=== PATIENT | male | born 1935 | race Caucasian/White ===

== ENCOUNTER → 2020-02-04 | Outpatient (CLI) | payer MEDICARE, BC ==
[~2020-02-04] MED LIST: LIPITOR 10MG10 MG PO
== END ==
LOC: COL.RAD 12:10
DX: N18.4 Chronic kidney disease, stage 4 (severe) (principal); N28.1 Cyst of kidney, acquired

== ENCOUNTER 2020-02-10 14:47 | Emergency (ER) | payer MEDICARE, BC ==
[~2020-02-10] VITALS: Ht 180.3 cm; Wt 80.9 kg
[2020-02-10 15:12] LABS: BASO % 0.1 % (0.0-2.0); GRAN % 80.9 % (42.2-75.2); LYMPH # 1.3 (1.2-3.4); LYMPH % 9.4 % (20.0-51.0); MEAN CELL VOLUME 99 fl (80.0-100.0); MEAN CORPUSCULAR HGB CONC 31 g/dl (33.0-37.0); MEAN PLATELET VOLUME 10.3 fl (7.4-10.4); MONO # 1.3 (0.1-0.6); MONO % 9.2 % (1.7-9.3); PLATELET COUNT 247 K/mm3 (130-400); RED BLOOD COUNT 2.72 M/mm3 (4.20-5.60); REDCELL DISTRIBUTION WIDTH-CV 16.1 % (11.5-14.5)
[2020-02-10 15:13] LABS: HEMATOCRIT 26.9 % (42.0-52.0); HEMOGLOBIN 8.4 g/dl (13.5-18.0); MEAN CORPUSCULAR HEMOGLOBIN 31 pg (27.0-31.0)
[2020-02-10 15:14] LABS: COLLECTION METHOD CATHETER
[2020-02-10 15:14] LABS: INR 1.1 (0.8-3.0); PROTHROMBIN TIME 12.7 SECONDS (9.7-12.8)
[2020-02-10 15:24] LABS: ALBUMIN 3.8 gm/dL (3.5-5.0); BILIRUBIN,TOTAL 2.7 mg/dL (0.0-1.0); C-REACTIVE PROTEIN 7.6 mg/dL (0.0-0.9); CALCIUM 9.3 mg/dL (8.4-10.2); CREATININE, serum 5.07 (0.66-1.25); POTASSIUM 5.7 mmol/L (3.4-5.0); TOTAL PROTEIN 7.1 gm/dL (6.4-8.2)
[2020-02-10 15:25] LABS: MUCOUS Present /lpf; PH 5 (5-8); SQUAMOUS EPITHELIAL 0-2 /hpf; URINE APPEARANCE Hazy; URINE BACTERIA None Seen /hpf; URINE BILIRUBIN Negative (NEGATIVE); URINE BLOOD 2+ (NEGATIVE); URINE COLOR Yellow; URINE GLUCOSE Negative (NEGATIVE); URINE KETONE Trace (NEGATIVE); URINE LEUKOCYTE ESTERASE Negative (NEGATIVE); URINE NITRATE Negative (NEGATIVE); URINE PROTEIN(semi-quant) 1+ (NEGATIVE); URINE UROBILINOGEN Negative (NEGATIVE)
[2020-02-10 15:35] LABS: TROPONIN-I 0.019 ng/mL (0.000-0.035)
[2020-02-10 15:42] LABS: ARTERIAL BLD GAS O2 SATURATION 95.6 % (92-100); ARTERIAL BLD GAS TCO2 CT 15.1; ARTERIAL BLOOD GAS BASE EXCESS -10.1 (-2-2); ARTERIAL BLOOD GAS HCO3 14.3 meq/L (22-26); ARTERIAL BLOOD GAS PCO2 26.6 mmHg (35-45); ARTERIAL BLOOD GAS PO2 86.4 mmHg (80-100); ARTERIAL BLOOD GAS pH 7.35 (7.35-7.45)
--- NOTE | 2020-02-10 16:23 | NUR ---
PINA responded to ED consult. The patient was found down in his home, after his friend/neighbor called 911 for a welfair check. The patient had not picked up his meals on wheels for a couple of days. He had some confusion. PINA met with the patient. He reports that he is not , does not have any children, and his siblings all . He states that he does not have any other family, just friend support and that he has never made a DPOA-HC. The patient's friend, Nehemiah Myrick (ph#[phone]), was in the waiting room. PINA met with him. Nehemiah was the one that contacted 911. He states that he normally calls the patient every week to check in on him. He confirms that the patient is not , does not have a children, and that his siblings have all . Nehemiah reports that the patient has a couple of other friends that live in [place]: Davonte Khanna and Ryan Lance. Nehemiah reports that the patient may have some legal documents at home and that he will check to see if the patient does have a DPOA-HC completed. PINA provided Nehemiah with PINA's phone number. PINA contacted the patient's PCP office to inquire if they have anything on file. The real estate investment analyst reports that they do not. The patient is to tentatively be admitted. PINA informed Nehemiah of this. Nehemiah would like to visit the patient and stay updated. PINA updated the patient's RN of the above information. PINA made an APS report. APS intake ID#[id number]. PINA to continue to follow.
[2020-02-10 16:46] VITALS: TEMP 97.7
[2020-02-10 17:52] VITALS: BP 123/53; PULSE 89
== END 2020-02-10 18:18 | disposition short-term general hospital (02) ==
LOC: COL.ER 14:47
PROVIDERS: Emergency Medicine
DX: S91.112A Laceration without foreign body of left great toe without damage to nail, initial encounter (principal); C34.90 Malignant neoplasm of unspecified part of unspecified bronchus or lung; C79.9 Secondary malignant neoplasm of unspecified site; N19 Unspecified kidney failure; N39.0 Urinary tract infection, site not specified; W19.XXXA Unspecified fall, initial encounter
CPT/HCPCS: J0696; J7030

== ENCOUNTER 2020-02-16 14:11 | Inpatient (IN) | payer MEDICARE, BC ==
[~2020-02-16] VITALS: Ht 180.3 cm; Wt 63.6 kg
--- NOTE | 2020-02-16 17:00 | NUR ---
arrived on unit per WC, assisted out of chair and took a couple of steps to bed, is unsteady when ambulating, when sitting on bed began to lie back side ways on the bed and assisted to lying in bed with head at top of bed, is alert to person and knows he is in [place], is unsure of the day of the week, has abrasion to right outer ankle and a mepiplex dressing to outerside of right lower leg, has jo ann to left knee area with areas of scabbing areas to left knee, left upper arm to outside of elbow with 6-7cm scabbing wound, has telfa dressing to inner right elbow that is abrasion and bruised, has dressing to cocyxs that is intact, reported to this nurse from [facility] that it is "pink" in color, full assessment completed, see admission assessment for further info,
[2020-02-16 17:17] VITALS: BP 125/63; PULSE 104; TEMP 98.4
[2020-02-16] MEDS ORDERED: PEPCID 20MG TAB20 MG PO (17:27)
[2020-02-16] MEDS ORDERED: SENNA-S 50 MG-81 TAB PO (17:28)
[2020-02-16] MEDS ORDERED: QUALITY CHOI500 U/GM TOP (17:28)
--- NOTE | 2020-02-16 18:51 | NUR ---
bedside shift report given to SHERMAN Burton
--- NOTE | 2020-02-16 20:00 | NUR ---
PATIENT REQUIRING ASSIST WITH REPOSITIONING IN BED DUE TO STIFFNESS WITH MOVEMENT OF DONA EXTREMITIES D/T PAIN WITH MOVEMENT. DENIES CHEST PAIN/SHORTNESS OF BREATH; FOLLOW COMMANDS APPROPRIATELY, NOT ORIENTED TO TIME/DATE CURRENTLY. BED ALARM ON.
--- NOTE | 2020-02-17 00:30 | NUR ---
Patient sleeping, breathing is nonlabored and even. Does not awaken when room is entered by staff. Bed alarm on.
[2020-02-17 03:09] VITALS: BP 112/58; PULSE 87; TEMP 98.6
--- NOTE | 2020-02-17 03:27 | NUR ---
PATIENT ATTEMPTING TO GET OUT OF BED, SETTING OFF BED ALARM, ASSIST PATIENT TO STAND AT BEDSIDE WHILE BED LINENS WERE CHANGED OUT, PATIENT INCONTINENT OF URINE. HS MEDS GIVEN, ABX OINT&NONSTICK DRSGS APPLIED TO CALFS ABRASIONS (R/L) AND SENOKOT GIVEN, WITH PATIENT NOW AWAKE AT THIS TIME. BED ALARM ON WHEN BACK IN BED.
--- NOTE | 2020-02-17 07:43 | NUR ---
Patient resting in bed during change of shift report given to day shift nurseTricia. Bed alarm on.
--- NOTE | 2020-02-17 11:44 | NUR ---
Patient had a shower this morning with OT and following the shower dressings to all his abrasions were patted dry applied ordered ointment, applied non adherent pad and secured with tegaderm. Patient tolerated well. Left great toe had sutures in tact, applied non adherent telpha and secured with tegaderm. Bilateral elbows and bilateral legs had a few abrasions that had yellow drainage observed to old dressings. No redness or other signs of infection observed. Patient has an area to his left buttock cheek that is open approx. 0.75 cm round as well as some blanchable redness to his coccyx area. Applied mepilex to area. Will continue to monitor.
--- NOTE | 2020-02-17 11:57 | NUR ---
Received a call from TICO Khanna this morning [phone]. He would like to receive updates on patient on a regular basis. 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 He was supposed to go for a follow up pet scan a week ago, but he fell and was hospitalized instead. So he will need to follow up with that doctor following his IPR stay. Keri HELLER was given this information. Patient also was okay with receiving calls from friend Nehemiah Vicente [phone].
--- NOTE | 2020-02-17 14:09 | NUR ---
Call placed to Dr. Candelaria's office to schedule a follow up appointment. Awaiting a return call.
--- NOTE | 2020-02-17 15:02 | NUR ---
PINA contacted the patient's friend/DPOA Davonte Khanna at [phone] to complete inital intake as the patient is new to [facility]. The patient lives alone in [place]. Davonte provides that the patient was independent prior to hospitalization. Davonte provides that patient did not utilize any equipment at home. Patient's PCP is Lon Recinos. Davonte was unsure of where patient obtained his medications. The patient does not have advance directives in EMR, but Davonte reports that documentation was completed at [facility]. PINA contacted medical records at [facility], and respresentative informed SW they do have documents and will fax to IPR unit. They confirmed that DPOA is Davonte Khanna. PINA will continue to follow.
--- NOTE | 2020-02-17 15:30 | NUR ---
PINA contacted TICO West of patient of to review IPR team conference note PINA provided current therapy services Ryan is being assisted with. PINA provided information to Davonte in regards to the IPR team reassessing Ryan on 02/24/2020. Davonte verbarlized understanding and agreement of plan. PINA will continue to follow.
--- NOTE | 2020-02-17 17:20 | NUR ---
Patient sleeping in bed at this time.
[2020-02-17 17:41] VITALS: BP 107/59; PULSE 85; TEMP 97.6
--- NOTE | 2020-02-17 18:26 | NUR ---
Patient drank all his ensure with ice cream this evening instead of his meal. He was not interested in what they were serving.
--- NOTE | 2020-02-17 18:30 | NUR ---
Patient was informed of the no visitor policy put into effect this evening.
--- NOTE | 2020-02-17 19:28 | NUR ---
Reported off to night nurse.
--- NOTE | 2020-02-17 20:00 | NUR ---
PT RESTING IN BED. ORIENTED BUT SL FORGETFUL AT TIMES. DENIES NEED FOR PAIN MEDICATION. USED URINAL WITH ASSIST. CHANGED CLOTHING WITH MIN ASSIST FROM PT. SCD'S ONAT THIS TIME. CALL LIGHT IN REACH. BED ALARM SET.
--- NOTE | 2020-02-18 04:14 | NUR ---
RPT INCONTINENT OF URINE IN DIAPER. SCANT BM SMEAR ALSO. REPOSTIONED FOR COMFORT. READY FOR MORE SLEEP. DENIES PAIN.
[2020-02-18 06:00] VITALS: BP 99/58; PULSE 86; TEMP 97.8
[2020-02-18 17:45] VITALS: BP 92/45; PULSE 86; TEMP 98
--- NOTE | 2020-02-18 18:00 | NUR ---
PATIENT DENIED PAIN THROUGHOUT THE SHIFT. THE PATIENT STATES THAT HE DOES NOT LIKE THE FOOD TODAY. PATIENT REFUSED ALL MEALS. PATIENT STATED THAT HE WOULD LIKE A STRAWBERRY SHAKE FOR DINNER WITH THE ENSURE. PATIENT REQUESTING CEREAL FOR BREAKFAST. PATIENT RESTING IN BED AT THIS TIME WITH BED ALARM ON.
--- NOTE | 2020-02-18 21:00 | NUR ---
PT RESTING IN BED. HAS INCREASING CONFUSION DAY WEARS ON. COOPERATIVE. NOT IMPULSIVE. DENIES PAIN. INCONT URINE. WEAR DIAPERS. SEE ASSESSMENT. CALL LIGHT IN REACH. BED ALARM SET.
[2020-02-19 06:00] VITALS: BP 83/43; PULSE 88; TEMP 98
--- NOTE | 2020-02-19 14:52 | NUR ---
SW attempted to contact the patient's DPOA-HC, Davonte Khanna ([phone]) to address any questions or concerns, left message. SW received a call from the patient's friend, Fahad Trena ([phone]) inquiring about the patient's status. SW attempted to contact Fahad to inform him that we could not release information to him without authorization, left message. Will continue to follow.
--- NOTE | 2020-02-19 17:01 | NUR ---
Patient currently resting in bed at this time. Patient has been turned q2 hours while in bed. Two areas of skin breakdown are visible on his bottom, one open sore on his inner left buttock and one excoriated area on his coccyx. Patient has otherwise denied pain. Patient has not eaten well today, despite being offered several different food choices. Snacks encouraged. Patient denies further needs at this time, call light within reach.
[2020-02-19 18:00] VITALS: BP 101/57; PULSE 97; TEMP 98.6
--- NOTE | 2020-02-19 19:00 | NUR ---
Received report from Lisa. Seen patient asleep in bed. Call light within reach.
--- NOTE | 2020-02-19 21:00 | NUR ---
Changed patient's briefs and repositoned him. Applied SCD on bilateral lower extremities. Denies pain.
--- NOTE | 2020-02-20 04:05 | NUR ---
Checked on patient, he denies pain right now. Changed his briefs. Dressing on his bottom was changed as well. Hooked back SCD after changing.
[2020-02-20 04:12] VITALS: BP 102/53; PULSE 84; TEMP 99.2
--- NOTE | 2020-02-20 07:12 | NUR ---
Endorsed patient to Kaylyn. Patient asleep during shift change. Denies pain thw whole shift. Changed his briefs at around 0400H. Bed alarm on.
[2020-02-20 17:07] VITALS: BP 100/56; PULSE 81; TEMP 98.6
--- NOTE | 2020-02-20 19:00 | NUR ---
PATIENT RESTED IN THE BED THROUGHOUT THE DAY WHEN NOT WORKING WITH THERAPIES. PATIENT CHECKED PERIODICALLY DURING THE SHIFT AND CHANGED NEED. PATIENT REPOSITIONED WITH PILLOWS THROUGHOUT THE SHIFT TO OFFLOAD PRESSURE FROM THE SACRUM. NUMEROUS DRESSINGS ON BODY CAME OFF DURING THE PATIENTS SHOWER WITH OT THIS MORNING. NEW DRESSINGS APPLIED TO SACRUM, LEFT GLUTE, BILATERAL LOWER EXTREMITIES AND BILATERAL UPPER EXTREMITIES. PATIENT DENIED PAIN THROUGHOUT THE SHIFT. PATIENT RESTING IN BED WATCHING TV AT THIS TIME. BED ALARM ON. CALL LIGHT WITHIN REACH. REPORT GIVEN TO SHERMAN YOUNG.
--- NOTE | 2020-02-20 19:28 | NUR ---
Received report from Kaylyn. Seen patient awake, lying in bed. He denies pain. Encouraged patient to finished his Ensure and he was able to drink them. Diapers still dry. Call light within reach.
--- NOTE | 2020-02-21 02:00 | NUR ---
Patient asleep. Came in to check if his briefs is wet. Changed patient's briefs. Denies need at this time. Not in pain.
[2020-02-21 06:00] VITALS: BP 98/50; PULSE 86; TEMP 97.8
--- NOTE | 2020-02-21 07:07 | NUR ---
Endorsed patient to Grace. Patient asleep during shift change. Not in pain the whole shift. Briefs were changed at around 0500H.
--- NOTE | 2020-02-21 07:10 | NUR ---
in bed and appears to be sleeping
--- NOTE | 2020-02-21 07:50 | NUR ---
assisted up in bed for breakfast although he states he doesn't really want anything, agreed to drink ensure and this was provided
--- NOTE | 2020-02-21 09:30 | NUR ---
assisted up and out of bed, ambulated with steady gait with standby assist into bathroom, was unable to void but had been incontinent of urine, incontinent care provided, ambulated out of bathroom and out to recliner, encouraged to sit up in recliner and explained it is good for his breathing and to help him get stronger, full assessment completed, see intervention for further info, has dressings to right lower leg and outer ankle, also to outer side of left leg, then bilateral elbows, mepiplex dressing to cocyx and right hip,
--- NOTE | 2020-02-21 10:50 | NUR ---
requesting to go back to bed that sitting in the chair makes his cocyx hurt, assisted into bed, does not follow directions well, began to lie back in bed sideways and then slow to understand how he needs to lie, redirected and then was able to get into bed
--- NOTE | 2020-02-21 12:54 | NUR ---
only ate grapes, coleslaw and some soup for lunch, did drink all of an ensure with lunch
--- NOTE | 2020-02-21 14:15 | NUR ---
called nurse to room and said he thought he had already been incontinent, assisted up to bathroom, had been incontinent of urine and then had small bowel movement, pink mepiplex over cocyx is pulling off and has 3cm stage II pressure ulcer, new bandage placed, out to room and into recliner
--- NOTE | 2020-02-21 15:10 | NUR ---
assisted back to bed, cocyx allevyn dresing changed and mepiplex to inside upper leg near cocyx also changed, c/o cocyx hurting while up in chair
[2020-02-21 16:20] VITALS: BP 95/51; PULSE 84; TEMP 97.7
--- NOTE | 2020-02-21 16:43 | NUR ---
appears to be sleeping but awakens easily, denies needs
--- NOTE | 2020-02-21 17:40 | NUR ---
refusing supper tray, ordered ensure for now and will have cereal and milk for breakfast
--- NOTE | 2020-02-21 18:45 | NUR ---
PATIENT RESTING IN BED DURING CHANGE OF SHIFT REPORT. REPORTS WOULD LIKE ORANGE JUICE WHEN NEXT AVAILABLE. HAD VOICED CONCERNS "AM I WASTING MONEY BEING HERE OR NOT" NO OTHER NEEDS REPORTED AT THIS TIME. INFORMED PATIENT HIS CONCERNS WILL BE FORWARDED TO FOR FURTHER EVALUATION, ESPECIALLY WITH HIS PROGRESS WITH THERAPIES. BED ALARM ON.
--- NOTE | 2020-02-21 20:00 | NUR ---
OBSERVED GAIT SLOW AND STEADY WHEN TAKING A FEW STEPS AT BEDSIDE, ABLE TO MULTI DISCIPLINED LANGUAGE ANALYST FEET WITH LOTS OF SUPERVISION/DIRECTION. DENIES NUMBNESS/TINGLING, SPEAKS CLEAR AND APPROPRIATELY. NO PROBLEMS WITH SWALLOWING MEDICATIONS WHOLE, NO PROBLEMS SWALLOWING SOLID FOODS.
--- NOTE | 2020-02-22 03:30 | NUR ---
PATIENT SLEEPING, DOES NOT AWAKEN WHEN ROOM ENTERED BY STAFF, OBSERVED RESP NONLABORED AND EVEN. BED ALARM ON.
[2020-02-22 06:15] VITALS: BP 111/63; PULSE 83; TEMP 98.7
--- NOTE | 2020-02-22 07:00 | NUR ---
PATIENT RESTING IN BED DURING SHIFT CHANGE REPORT WITH BED ALARM ON.
--- NOTE | 2020-02-22 11:13 | NUR ---
Patient resting in recliner, call light in reach and chair alarm set. Patient asked to have his chair reclined further and to have his legs up. This nurse assisted him and educated him on how to recliner the chair. He was able to demonstrate properly. Patient has a reddened bottom and excoriation to the area. This nurse applied mepilex to the area. Bacatracin was applied to patient's open healing wounds to bilateral legs and arms. Mepilex was applied to left wrist where patient's watch keeps causing his arm to bleed from delicate skin and healing abrasion. Will continue to monitor.
--- NOTE | 2020-02-22 11:17 | NUR ---
Patient's bed was changed this morning due to being wet with urine.
--- NOTE | 2020-02-22 12:33 | NUR ---
Sweep Press Operator followed up with the patient from the weekend. SW asked patient if he had anyone in town that could bring him clothes and he stated he didn't think so. SW contacted patient's DPOA, Davonte who advised he would be able to make arrangements for someone to bring in clothes to patient. PINA will follow up with Davonte after team conference on Saturday to provide updates.
[2020-02-22 17:22] VITALS: BP 120/56; PULSE 84; TEMP 98.2
--- NOTE | 2020-02-22 19:08 | NUR ---
PATIENT RESTING IN BED DURING CHANGE OF SHIFT REPORT RECEIVED FROM DAY SHIFT NURSEBRITTNEY. BED ALARM ON. DENIES ANY NEEDS AT THIS TIME.
--- NOTE | 2020-02-22 19:55 | NUR ---
Spoke with EDUARDO this evening and discussed ways for patient to get more interaction with friends visually as well as getting access to a computer so he can watch daily masses. Davonte will be calling around checking on this tonight and tomorrow to see how this can be accomodated. Patient has been refusing most of his meals reporting that the food is aweful. Patient was encouraged to eat and this nurse had kitchen make him a sandwich this evening and some jellow with strawberrys so that he would eat a good meal. Will continue to monitor. Reported off to night nurse.
--- NOTE | 2020-02-22 20:00 | NUR ---
OBSERVED BLE WEAKNESS WITH MOVEMENT, REPORTS HE FEELS TIRED WITH EXERTION, DRSG TO COCCYX AREA/INTACT, LEFT FOREARM-COVER FOR SKIN TEAR.
--- NOTE | 2020-02-22 23:19 | NUR ---
PATIENT INCONTINENT OF URINE/STOOL, HAD TAKEN OFF ADULT PULL UPS AND PUT BRIEFS ON THE FLOOR NEXT TO BED, OBSERVED HOSP PANTS WET WITH INCONTINENT URINE. INCONTINENT CARE GIVEN, APPLIED ZINC OXIDE MED. PATIENT DENIES ANY FURTHER NEEDS.
[2020-02-23 05:44] VITALS: BP 106/57; PULSE 77; TEMP 97.6
--- NOTE | 2020-02-23 06:01 | NUR ---
BED ALARM ON GOING OFF, PATIENT SITTING AT BOTTOM PART OF BED, DID NOT KNOW WHAT HE NEEDED. PATIENT THEN LAID BACK DOWN WHEN INFORMED OF BREAKFAST MEAL NOT SERVED UNTIL AFTER 0700. BED ALARM ON WHEN LAYING BACK IN BED.
--- NOTE | 2020-02-23 07:13 | NUR ---
PATIENT RESTING IN BED DURING CHANGE OF SHIFT REPORT GIVEN TO DAY SHIFT NURSEBRITTNEY. BED ALARM ON.
--- NOTE | 2020-02-23 09:47 | NUR ---
Patient resting in bed, call light in reach and chair alarm set. Patient denies pain this morning. Is independent with eating his meals. Patient requires a lot of queing with transfer from bed to bathroom and back. Patient wanting to sit down instead of standing up after just a few minutes of standing, but with queing was able to walk back and forth with one person assistance. Spoke with patient's friend Nehemiah this morning and he will be dropping off patient's check book so that therapy can work with him on paying his bills. He will also drop off some clothes for him. Will continue to monitor.
--- NOTE | 2020-02-23 11:11 | NUR ---
Personal items received from family and delivered to patient room.
--- NOTE | 2020-02-23 16:07 | NUR ---
This nurse received a call from the [facility] Department regarding the patient. Reporting that patient's sister was trying to locate him and was worried. This nurse asked patient if he had a sister, but he stated that he didn't. This nurse then spoke with SW to let them know that someone saying she was patient's sister was trying to call him and SW was going to follow up with that person. This nurse then received a call from patient's [id number] and when patient was asked about her he was willing to talk to her. This nurse then transferred call to patient. They are visiting on the phone at this time.
[2020-02-23 16:34] VITALS: BP 108/59; PULSE 96; TEMP 97.7
--- NOTE | 2020-02-23 18:57 | NUR ---
PATIENT RESTING IN BED DURING CHANGE OF SHIFT REPORT RECEIVED FROM DAY SHIFT NURSEBRITTNEY. BED ALARM ON.
--- NOTE | 2020-02-23 19:15 | NUR ---
Ryan is having episodes in the evening when walking to and from bathroom with staff where he almost gets in a trans and then stiffens up and tries to sit down. It looks as if he sees the line on the floor to the bathroom and can't go over it. Staff has to almost yell out for him to stand up tall and lean nose over toes for him to get out of the trans he was in. He was then able to walk to the bathroom with queing. I asked the patient what he is thinking when that happens, but he is not aware that he is acting any different. This was reported off to night nurse.
--- NOTE | 2020-02-23 19:52 | NUR ---
PATIENT ORIENTED THEN WOULD REPEAT NEED FOR INSTRUCTIONS FOR THE DAY, GREETED THIS NIGHT NURSE WITH "GOOD MORNING....WHAT IS THE PLAN TODAY?" THEN REMEMBERED HAD ALREADY FINISHED THERAPY AFTER PATIENT REMINDED HE HAD DONE HIS THERAPY TODAY. CONTINUES WITH WEAKNESS GENERALIZED BUT ABLE TO BE UP WITH THERAPIES DURING DAY, REPORTS FEELS TIRED. DENIES PAIN AT THIS TIME.
--- NOTE | 2020-02-24 00:43 | NUR ---
PATIENT SLEEPING, DOES NOT AWAKEN WHEN ROOM ENTERED BY STAFF. BREATHING NONLABORED AND EVEN. BED ALARM ON.
[2020-02-24 06:24] VITALS: BP 113/57; BP 79/31; PULSE 75; TEMP 98.3
--- NOTE | 2020-02-24 07:42 | NUR ---
PATIENT RESTING IN BED DURING CHANGE OF SHIFT REPORT GIVEN TO DAY SHIFT NURSENORMAN. BED ALARM ON.
[2020-02-24 16:49] VITALS: BP 104/48; PULSE 80; TEMP 97.4
--- NOTE | 2020-02-24 16:51 | NUR ---
Impact Retail Service Merchandiser met with patient to review and provide copy of team conference notes. SW spoke with patient about recommendations for Assisted Living at discharge, even if just temporarily. Patient is open to this but needs to think about it. SW contacted patient's DPOA, Davonte to schedule family conference for 02/26/20 @ 1300. PINA provided meeting time to patient and to Chantal, IPR Director. PINA spoke with Davonte about AL recommendation. Davonte is supportive of this but worries patient may be resistant. Discharge date is tentatively set for 03/04/20. PINA will continue to follow.
--- NOTE | 2020-02-24 19:00 | NUR ---
PATIENT COCCYX DRESSING CHANGED AFTER THE PATIENTS SHOWER THIS MORNING. PATIENT BEGAN TO LEAN AND SIT BACK THIS NURSE WAS APPLYING THE DRESSING. PATIENT STATES THAT HE KNOWS HE SAT DOWN TOO EARLY, BUT DID NOT LISTEN TO VERBAL CUES. PATIENT RESTING IN BED DURING SHIFT REPORT. PATIENT DENIES ANY NEEDS AT THIS TIME. REPORT GIVEN TO SHERMAN YOUNG.
--- NOTE | 2020-02-24 19:05 | NUR ---
Received report from Kaylyn. Seen patient in a sitting position in bed. He denies pain. He states he had some bleeding in his left elbow that's why they have to put a dressing. Most abrasions he has in his body are open to air. Call light within reach.
[2020-02-25 05:55] VITALS: BP 105/50; PULSE 78; TEMP 98.7
--- NOTE | 2020-02-25 06:00 | NUR ---
Checked on patient and briefs were changed. Dressing on his cocyx still intact. He denies pain. Patient can move side to side. Bed alarm on. Call light within reach.
--- NOTE | 2020-02-25 16:45 | NUR ---
Fire Sprinkler Inspector followed up with patient to discuss Assisted Living options. Patient would like to obtain some information about AL options in [place] including [facility], [facility], and [facility]. SW will follow up with these AL facilities and provide information to patient.
[2020-02-25 18:00] VITALS: BP 100/47; PULSE 90; TEMP 98.2
--- NOTE | 2020-02-25 19:00 | NUR ---
PATIENT IS SLEEPING IN BED DURING SHIFT REPORT. SCD'S IN PLACE. PATIENT DENIED PAIN THROUGHOUT THE SHIFT. BED ALARM ON. CALL LIGHT WITHIN REACH. REPORT GIVEN TO SHERMAN GARIBAY.
--- NOTE | 2020-02-25 21:00 | NUR ---
PT RESTING IN BED. VERY DROWSY. ORIENTED AT THIS TIME WITH PERIODS OF FORGETFULNESS. COOPERATIVE AND PLEASANT. ASSESSMENT COMPLETED. PT HAS INCONTINENT PULL UPS ON. DENIES PAIN AT THIS TIME. BED ALARM SET . CALL LIGHT IN REACH.
[2020-02-26 05:45] VITALS: BP 103/56; PULSE 85; TEMP 97.8
--- NOTE | 2020-02-26 11:37 | NUR ---
Patient attending theapies this morning. He has been having more confusion today, had a tachy heart rate this morning when working with PT and RT put patient on oxygen while completing therapy. O2 was below 90% when exercising. Will continue to monitor. VS at 08:40 AM 109/58, P 102 - 130, 89% on RA, 100% on 2 Liter's oxygen, R 18. See EKG order and Tele order. Dr. Nicolas saw patient and there were no orders for CT at this time.
[2020-02-26 13:30] VITALS: BP 128/95; PULSE 108
--- NOTE | 2020-02-26 14:57 | NUR ---
Tile Professional faxed referrals to Assisted Living Facilities including [facility], [facility], [facility], and [facility]. SW then participated in family meeting which included Chantal, IPR Director and PT/OT/ST. Patient's DPOA, Davonte and his Jessica participated by phone. Chantal opened the meeting by explaining it's purpose then PT/OT/ST reviewed patient's progress and recommendations. At this time, Assisted Living is recommended. The team discussed with patient that if he will need SNF at discharge, Dr. Cueva will need to be consulted to discuss treatment as SNF cannot accept while patient is receiving chemotherapy. Patient and Davonte verbalized understanding. At this time, it is not anticipated that home will be an option for patient. Patient and Davonte are hopeful that patient will progress and be appropriate for AL. SW followed up with AL referrals. [facility], [facility], [facility], and [facility] all advised that based on patient's current status, they do not feel he meets AL criteria and will need higher level of care. SW will continue to send updates and follow.
[2020-02-26 16:00] VITALS: BP 108/62; PULSE 103; TEMP 98.9
--- NOTE | 2020-02-26 17:06 | NUR ---
Patient found getting out of bed, alarm sounded to bed. Will instruct staff to continue to keep an eye on patient closely. Patient is located close to nurse station.
--- NOTE | 2020-02-26 17:14 | NUR ---
Spoke with PORFRIIO Cruz to let her know that the IV was not placed at this time does Dr. Nicolas want to have it placed for the Tele at this time. He chose not to do a CT scan earlier today. PORFIRIO Cruz will evaluate patient for the next 24 hours on Tele and if Patient continues to stay in [facility] then she will see if Dr. Nicolas wants to DC the Tele. No IV needs to be placed at this time per PORFIRIO Cruz.
[2020-02-26 18:40] VITALS: BP 108/52; PULSE 103; TEMP 98
--- NOTE | 2020-02-26 19:34 | NUR ---
Patient requested to talk to PINA about getting his papers in order. Call placed to Davonte Khanna to let him know of the patient's concerns. Davonte will be calling and talking with Ryan this weekend to visit and discuss some of those concerns. Patient currently resting in bed, call light in reach and bed alarm set. Reported off to night nurse.
[2020-02-27 00:09] VITALS: BP 100/48; PULSE 84; TEMP 98.8
[2020-02-27 04:03] VITALS: BP 109/55; PULSE 84; TEMP 97.8
[2020-02-27 05:10] VITALS: BP 102/52; PULSE 83; TEMP 98.2
--- NOTE | 2020-02-27 05:19 | NUR ---
QUIET, UNEVENTFUL NIGHT.
[2020-02-27 08:00] VITALS: BP 97/47; PULSE 91; TEMP 98.8
[2020-02-27 16:27] VITALS: BP 106/57; PULSE 82; TEMP 99.1
--- NOTE | 2020-02-27 18:50 | NUR ---
PATIENT HAD AN UNEVENTFUL DAY. PATIENT RESTED IN BED THROUGHOUT THE SHIFT. PATIENT APPEARS TO BE MORE CONFUSED SINCE THIS NURSE WORKED WITH THE PATIENT LAST ON SATURDAY. INCONTINENT CARE PROVIDED NEEDED. PATIENT DENIED PAIN THROUGHOUT THE DAY. PATIENT ASLEEP IN BED DURING SHIFT REPORT. REPORT GIVEN TO SHERMAN GARIBAY.
--- NOTE | 2020-02-27 20:00 | NUR ---
PT RESTING IN BED. MENTATION VERY FOGGY AND FORGETFUL. SOME INFORMATION IS ACCURATE. AWARE MONTH/YEAR/PLACE/SEASON. PT DRIFTS INTO CONFUSED CONVERSATION. PLEASANT AND COOPERATIVE. NO CHANGE IN NEURO STATUS. 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 FOLLOWS INSTRUCTIONS WITH NEURO CHECK. SEE ASSESSMENT REGARDING SKIN INTEGRITY. PT INCONTINENT OF URINE. WEARS DIAPERS. REPOSITIONED FREQUENTLY. CALL LIGHT IN REACH. BED ALARM SET.
[2020-02-28 04:41] VITALS: BP 107/55; PULSE 85; TEMP 98.1
--- NOTE | 2020-02-28 09:30 | NUR ---
PATIENT ASSESSMENT COMPLETED. HE RESTS IN BED HAS FINISHED BREAKFAST. DENIES PAIN OR OTHER NEEDS.REPOSITIONED IN BED AND CHANGED BRIEF
[2020-02-28 18:15] VITALS: BP 105/52; PULSE 93; TEMP 98
[2020-02-29 05:21] VITALS: BP 98/57; PULSE 86; TEMP 98.1
--- NOTE | 2020-02-29 05:31 | NUR ---
Patient rested well overnight, did awaken twice and attempt to get up independently due to confusion. Patient reoriented quickly and was redirected easily. Patient denies pain or needs at this time, call light within reach, bed alarm on.
--- NOTE | 2020-02-29 09:00 | NUR ---
Assessment completed, alert/oriented to person, gets confused/disoriented but is easily redirected and is able to follow most commands appropriately, helped him get dressed and sat up to eat breakfast, no neuro deficits noted this morning, heart RRR/dsital pulses are palapble, will continue to monitor
[2020-02-29 11:12] VITALS: BP 91/54; PULSE 106
[2020-02-29 11:15] VITALS: BP 105/58; PULSE 96
[2020-02-29 11:20] VITALS: BP 107/55; PULSE 94
--- NOTE | 2020-02-29 11:28 | NUR ---
At 1110 patient was with Occupational therapy and was sitting on the toilet and went unresponsive, no loss of breathing or pulse noted, after about 30 seconds patient was responding to name but still with LOC, myself and PT Guy did manual cradle carry him to his bed, he immediatley started to regain LOC and was responding appropriately to questions and commands, initaill BP was soft and he was a little tachycardic but this quickly resolved, see documentation for VS, was in the room within a couple minutes and evaluated the patient as well / No new orders given to me at this time
[2020-02-29 12:22] LABS: BASO # 0.1 (0.0-0.2); BASO % 0.6 % (0.0-2.0); EOS # 0.2 (0.0-0.7); GRAN # 6.4 (1.4-6.5); GRAN % 68.5 % (42.2-75.2); LYMPH # 1.8 (1.2-3.4); LYMPH % 18.8 % (20.0-51.0); MEAN CELL VOLUME 105 fl (80.0-100.0); MEAN CORPUSCULAR HGB CONC 30 g/dl (33.0-37.0); MEAN PLATELET VOLUME 10.6 fl (7.4-10.4); MONO # 0.9 (0.1-0.6); MONO % 9.9 % (1.7-9.3); PLATELET COUNT 235 K/mm3 (130-400); RED BLOOD COUNT 2.84 M/mm3 (4.20-5.60); REDCELL DISTRIBUTION WIDTH-CV 15.9 % (11.5-14.5)
[2020-02-29 12:24] LABS: HEMATOCRIT 29.8 % (42.0-52.0); MEAN CORPUSCULAR HEMOGLOBIN 32 pg (27.0-31.0)
[2020-02-29 12:27] LABS: ANION GAP 10 mmol/L (7-16); BLOOD UREA NITROGEN 40 mg/dL (9-20); CALCIUM 8.9 mg/dL (8.4-10.2); CARBON DIOXIDE 26 mmol/L (22-30); CHLORIDE 99 mmol/L (98-107); CREATININE, serum 2.33 (0.66-1.25); GLUCOSE 95 mg/dL (74-106); POTASSIUM 4.8 mmol/L (3.4-5.0); SODIUM 134 mmol/L (137-145)
[2020-02-29 12:40] LABS: TROPONIN-I < 0.012 ng/mL (0.000-0.035)
--- NOTE | 2020-02-29 16:26 | NUR ---
Image Archivist spoke with patient's DPOA-Davonte who advised patient was thinking this weekend that maybe he could just discharge home with support from Davonte and his , Jessica. SW followed up with patient to discuss discharge plan. SW advised that home is not recommended and at this point, patient will need a higher level of care then even Assisted Living. Patient verbalized understanding and requested printed information about the three SNFs in [place]. SW provided. PINA collaborated with Chantal, [facility] Director about consulting with Dr. Cueva, oncologist. Chantal also advised that patient may have a Neurology consult prior to discharge. SW faxed referrals to [facility], and [facility]. SW to continue to follow.
[2020-02-29 18:09] VITALS: BP 95/55; PULSE 66; TEMP 97.7
--- NOTE | 2020-02-29 20:00 | NUR ---
At time of assessment, patient is sleeping in bed; He is easily awoken by voice. He is slightly drowsy but answers orientation questions correctly. Hand director of safety and security are equal but weak. Heart sounds are regular, lungs are clear but diminished. He has various skin tears on his upper and lower extremities, none of which are bleeding at this time. He does not complain of any pain. No edema is present. Will continue to monitor.
[2020-03-01 05:15] VITALS: BP 99/53; PULSE 83; TEMP 97.9
--- NOTE | 2020-03-01 05:15 | NUR ---
Patient has slept throughout the night with no complaints of pain. No new concerns.
--- NOTE | 2020-03-01 16:03 | NUR ---
Gang Miner collaborated with SHERMAN Mcmillan at Dr. Cueva's office about discharge planning. Deyanira spoke with Dr. Cueva who advised patient could hold off on chemotherapy during skilled stay as that is what patient will require at discharge. Deyanira inquired about facilities willingness to do Keytruda, an IV infusion during stay. Deyanira advised this would be considered immunotherapy. Deyanira reports facilities typically won't do this due to cost. Deyanira advised if facilities won't do the Keytruda, patient could still hold off on all treatments during skilled stay. PINA contacted Lisa at [facility], Paco at [facility], and Montrell at [facility] to provide update on treatment. Each facility will look into if they can do Keytruda or not. PINA faxed clinical updates including Neurology Consult. PINA followed up with patient to provide update. Patient states he read info PINA provided about the facilities. PINA also provided update to TICO Arauz who advised Paco at [facility] had been in contact with him. PINA will continue to follow.
--- NOTE | 2020-03-01 17:58 | NUR ---
Patient resting in bed at this time eating supper. He attended all therapies today. Patient continues to have confusion at times, but was alert to the year and month. Patient was a one to two assist with transfers depending on the time of day and if he was weak. Patient was incontinent of urine multiple times today. 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 All open areas cleaned with sterile saline, patted dry then applied aquacel AG to open areas and secured with mepilex. Patient was also placed on 2 Hour turn scheduled and incontinent checks. Patient has been refusing to turn on either side, but this nurse educated patient today about the need to turn from side to side on a regular basis to prevent these from getting worse. Patient did allow nurse to place him on his side this afternoon. Will continue to monitor.
[2020-03-01 18:20] VITALS: BP 104/61; PULSE 88; TEMP 98.8
--- NOTE | 2020-03-01 19:00 | NUR ---
PT RESTING IN BED. SEDATE. PT AGREED TO EXTERNAL CATHETER. PLACED TO DEPENDENT DRAINAGE. PT REPOSITIONED TO KEEP OFF COCCYX. DENIES PAIN. CALL LIGHT IN REACH. BED ALARM SET.
--- NOTE | 2020-03-02 04:52 | NUR ---
PT HAS BEEN TURNED APPROXIMATELY Q2HR & EXTERNAL CATHETER INTACT- NO LEAKAGE TO PROMOTE HEALING OF COCCYX WOUND. PT SLEEPING WELL. NO RESP DISTRESS. DENIES PAIN WHEN AWAKE.
[2020-03-02 05:25] VITALS: BP 104/53; PULSE 90; TEMP 98
--- NOTE | 2020-03-02 06:10 | NUR ---
UNEVENTFUL NIGHT. PT REPOSTIONED Q2-3HRS. NO IMPULSIVENESS. DENIES PAIN.
--- NOTE | 2020-03-02 07:31 | NUR ---
Patient resting in bed, call light in reach and bed alarm is set.
[2020-03-02 12:48] VITALS: BP 100/57; PULSE 88; TEMP 98.2
--- NOTE | 2020-03-02 12:49 | NUR ---
Patient had an episode of weakness when working with PT this morning. PT took his blood pressure and it was 70/50's after doing some activity. He took patient back up to his room and blood pressure came up to 90's/50's, but patient still feeling very weak. Patient encourage to drink more water and PT decided that he would not be able to work with him today due to weakness.This nurse will be meeting with Dr. Nicolas at 1:00 PM and will discuss condition. Patient is currently lying in bed eating a half a sandwich for lunch, refusing his first lunch of the day and then given a turkey sandwich. VSS 100/57; 98% on RA; 88; 98.2; 18.
[2020-03-02 16:13] VITALS: BP 114/52; PULSE 79; TEMP 98.1
--- NOTE | 2020-03-02 16:50 | NUR ---
Bingo Clerk followed up with Montrell at [facility] and Paco at [facility], both facilities can accept referral. PINA spoke with Lisa at [facility] who advised they were still reviewing updates. Lisa advised she would be contacting patient's DPOA, Davonte this afternoon. PINA met with patient and provided copy of team conference notes. SW provided update on facilities and patient states he is still talking things over with Davonte. PNIA requested COVID swab to be done. Palliative Consult has been ordered. PINA contacted Leonie Palliative RN who will follow up tomorrow. SW to continue to follow.
--- NOTE | 2020-03-02 20:34 | NUR ---
Patient attended therapies until this morning when he had a sinkable episode when working with therapy. See order to hold therapies today due to weakness. Patient was seen by Dr. Nicolas. 20 G IV catheter was started to patients left forearm and he was given 1 L bolus of IV fluids. Patient tolerated well. See new orders to start Florinef. Reported off to night nurse.
[2020-03-03 04:19] VITALS: BP 95/45; PULSE 45; TEMP 98.2
--- NOTE | 2020-03-03 10:18 | NUR ---
I met with "Ryan" this morning to talk about goals of care. he is aware that he will be discharged tomorrow and states he hopes to go to [facility] for a skilled stay. It is still his stated plan that he hopes to go home when he is able to get stronger. He does understand that while he is at a skilled facility, he will not be able to have chemotherapy. He reports he started chemotherapy in August and it has really made him feel bad, although better after the dose was adjusted. he is willing to wait and decide how he will proceed after he finishes his skilled care. If things do not improve, he may decide that chemotherapy is no longer worth the way it makes him feel and then i will be done. We talked about hospice services if he makes that decision, to help him be able to be more comfortable and enjoy the things he does still enjoy. Unfortunately, visits with friends and watching [employer] sporting events may be difficult to accomplish during this COVID restriction. He understands this but having trouble accepting everything that is happening. Through the conversation, he would start talking about a construction project that he hopes to see finished in 2022 when he gets into a subject that is difficult to talk about. 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
--- NOTE | 2020-03-03 11:30 | NUR ---
PATIENT SITTING UP IN THE WHEELCHAIR AFTER HIS SHOWER WITH OT. BACITRACIN OINTMENT APPLIED TO SKIN ABRASIONS. PATIENT ASSISTED INTO BED BY OT. SACRAL DRESSING REMOVED. PERIANAL CARE PROVIDED. ZINC OXIDE OINTMENT & AQUACEL AG STRIPS APPLIED TO SACRAL STAGE 2 PRESSURE ULCER, AND COVERED WITH SACRAL DRESSING. PATIENT TOLERATED WELL. INTERMITTENT EXTERNAL MALE CATHETER TO DEPENDENT DRAINAGE WITH CLEAR YELLOW URINE PRESENT IN LOPEZ BAG. PATIENT IS ABLE TO TURN SELF SIDE TO SIDE AND PULL SHORTS UP WITH MINIMAL ASSIST. SHORTS STUCK TO BRIEF. PATIENT NEEDED ASSISTANCE IN FREEING THE BRIEF FROM HIS SHORTS. PATIENT ABLE TO TURN SIDE TO SIDE AND PULL SHORTS THE REST OF THE WAY UP. PATIENT BOOSTED IN BED. BED ALARM ON. CALL LIGHT WITHIN REACH. PATIENT DENIES COMPLAINTS OF PAIN AT THIS TIME.
--- NOTE | 2020-03-03 16:52 | NUR ---
Chiropractic Teacher spoke with Lisa at [facility] who advised they can accept as soon as COVID results are received. At this time, COVID test is still pending. PINA met with patient and had Davonte DOSHI on speakerphone. Patient states his first preference is [facility] and hopes to get there tomorrow. SW contacted Paco at [facility] and Montrell at [facility] to thank them for reviewing referral. PINA collaborated with Leonie Palliative RN who advised patient may consider hospice in the future but is not interested at this time. PINA will continue to follow.
[2020-03-03 17:06] VITALS: BP 118/59; PULSE 85; TEMP 97.9
--- NOTE | 2020-03-03 19:00 | NUR ---
PATIENT RESTING IN BED DURING SHIFT REPORT. SCD'S TO BLE. BED ALARM ON. CALL LIGHT WITHIN REACH. BEDSIDE REPORT GIVEN TO SHERMAN RENE.
--- NOTE | 2020-03-03 20:00 | NUR ---
PATIENT FOLLOWS COMMANDS, ANSWERS ORIENTATION QUESTIONS APPROPRIATELY BUT IS FORGETFUL AT TIMES. SPEAKS CLEARLY, NO FACIAL DROOPING OBSERVED, NO WEAKNESS TO EITHER SIDE OF BODY OBSERVED, SWALLOWS MEDS WITH NO PROBLEMS.
--- NOTE | 2020-03-04 02:30 | NUR ---
PATIENT SLEEPING, DOES NOT AWAKEN WHEN ROOM IS ENTERED BY STAFF. BREATHING OBSERVED NONLABORED AND EVEN. BED ALARM ON.
[2020-03-04 05:22] VITALS: BP 103/53; PULSE 83; TEMP 98
[2020-03-04 07:16] LABS: BASO # 0.1 (0.0-0.2); BASO % 0.8 % (0.0-2.0); EOS # 0.3 (0.0-0.7); EOS % 3.1 % (0-4.0); GRAN # 4.9 (1.4-6.5); GRAN % 57.1 % (42.2-75.2); LYMPH # 2.3 (1.2-3.4); LYMPH % 26.5 % (20.0-51.0); MEAN CELL VOLUME 101 fl (80.0-100.0); MEAN CORPUSCULAR HGB CONC 30 g/dl (33.0-37.0); MEAN PLATELET VOLUME 11.1 fl (7.4-10.4); MONO # 1.1 (0.1-0.6); MONO % 12.4 % (1.7-9.3); PLATELET COUNT 228 K/mm3 (130-400); RED BLOOD COUNT 2.74 M/mm3 (4.20-5.60); REDCELL DISTRIBUTION WIDTH-CV 14.9 % (11.5-14.5)
[2020-03-04 07:21] LABS: CALCIUM 8.7 mg/dL (8.4-10.2); CREATININE, serum 2.02 (0.66-1.25); MAGNESIUM 2.3 mg/dL (1.6-2.3); POTASSIUM 4.6 mmol/L (3.4-5.0)
[2020-03-04 07:22] LABS: HEMATOCRIT 27.7 % (42.0-52.0); HEMOGLOBIN 8.4 g/dl (13.5-18.0); MEAN CORPUSCULAR HEMOGLOBIN 31 pg (27.0-31.0)
--- NOTE | 2020-03-04 07:38 | NUR ---
PATIENT IN BED DURING CHANGE OF SHIFT REPORT GIVEN TO DAY SHIFT NURSENORMAN. BED ALARM ON.
[2020-03-04] MEDS ORDERED: TYLENOL 325MG325 MG PO (11:18)
[2020-03-04] MEDS ORDERED: DULCOLAX S10 MG/SUPP RC (11:18)
[2020-03-04] MEDS ORDERED: COLACE 100100 MG/CAP PO (11:18)
[2020-03-04] MEDS ORDERED: MIRALAX PA17 GM/Dose PO (11:19)
[2020-03-04] MEDS ORDERED: PEPCID 20MG TAB20 MG PO (11:19)
[2020-03-04] MEDS ORDERED: ZINC OXIDE 28GM TOP (11:19)
[2020-03-04] MEDS ORDERED: FLORINEF ACETA0.1 MG PO (11:20)
--- NOTE | 2020-03-04 11:30 | NUR ---
LEFT FOREARM INT DISCONTINUED PRIOR TO DISCHARGE. EXTERNAL MALE CATHETER DISCONTINUED. PERICARE PROVIDED. LEFT FOREARM/ELBOW DRESSING REMOVED AND REPLACED. COCCYX DRESSING REMOVED. SACRAL AREA CLEANED. ZINC OXIDE OINTMENT AND AQUACEL AG STRIPS APPLIED AND COVERED WITH MEPLEX AND COCCYX DRESSING. SUTURES REMOVED FROM THE RIGHT GREAT TOE. PATIENT TOLERATED WELL. PATIENT DENIED PAIN THROUGHOUT THE MORNING AND AFTERNOON. SEE PATIENT SHIFT ASSESSMENT.
[2020-03-04 12:57] VITALS: BP 103/53; PULSE 83; TEMP 98
--- NOTE | 2020-03-04 14:07 | NUR ---
THIS NURSE ATTEMPTED TO CALL NURSING REPORT. MESSAGE LEFT FOR SHAHLA DENTON. WILL TRY AGAIN LATER.
--- NOTE | 2020-03-04 16:09 | NUR ---
REPORT CALLED TO SHERMAN RICE AT [facility]. PATIENT TRANSFERRED.
--- NOTE | 2020-03-04 16:14 | NUR ---
Patient's COVID results came back negative. Patient to discharge to [facility] ([facility]) today. PINA collaborated with Lisa at [facility] to set transport for 1300. PINA provided transport time to Kaylyn WHITAKER and patient. SW read IM form aloud to patient who verbalized understanding and gave SW permission to sign on his behalf. PINA placed form on chart and provided copy to patient. PINA provided update to TICO Arauz. PINA collaborated with Kaylyn WHITAKER about follow up appointments. [facility] surgery has not returned call on follow up appointment. PINA collaborated with Dr. Cueva's office who will coordinate with [facility] on scheduling follow up. PINA provided these updates on appointments to Lisa at [facility]. PINA faxed discharge orders and COVID results. No additional needs at this time.
--- NOTE | 2020-03-07 13:55 | NUR ---
Discharge QIM scores were reviewed by the team. Code of 4 chosen for lower body dressing was determined by team discussion to be the most usual performance for this patient during the assessment period. Code of 4 for walking 10 feet was determined by team discussion to be the most usual performance for this patient during the assessment period.--Chantal Madden, PD
== END 2020-03-04 13:30 | DRG 949 ==
PROVIDERS: Hospitalist; ADMIT Internal Medicine
DX: S06.5X9D Traumatic subdural hemorrhage with loss of consciousness of unspecified duration, subsequent encounter (principal); E43 Unspecified severe protein-calorie malnutrition; C34.90 Malignant neoplasm of unspecified part of unspecified bronchus or lung; N17.9 Acute kidney failure, unspecified; Z68.1 Body mass index [BMI] 19.9 or less, adult; I95.9 Hypotension, unspecified; S00.91XD Abrasion of unspecified part of head, subsequent encounter; T14.8XXD Other injury of unspecified body region, subsequent encounter; W19.XXXD Unspecified fall, subsequent encounter; E78.5 Hyperlipidemia, unspecified; D53.9 Nutritional anemia, unspecified; Z87.891 Personal history of nicotine dependence; Z91.81 History of falling
CPT/HCPCS: 99222-AI; 99231-AI; 99232-AI; 99233-AI; 99239; J7030

== ENCOUNTER → 2020-06-19 | Outpatient (CLI) | payer MEDICARE, BC ==
[~2020-06-19] MED LIST changes: +COLACE 100100 MG/CAP PO; +DULCOLAX S10 MG/SUPP RC; +FLORINEF ACETA0.1 MG PO; +MIRALAX PA17 GM/Dose PO; +PEPCID 20MG TAB20 MG PO; +QUALITY CHOI500 U/GM TOP; +SENNA-S 50 MG-81 TAB PO; +TYLENOL 325MG325 MG PO; +ZINC OXIDE 28GM TOP
== END ==
LOC: ZCOL.LAB 15:44
DX: U07.1 COVID-19 (principal)